=== PATIENT | female | born 2000 | race African-American/Black ===

== ENCOUNTER 2022-05-25 22:59 | Emergency (ER) | payer MEDICAID, OTHER ==
[~2022-05-25] VITALS: Ht 165.1 cm; Wt 88.5 kg
[2022-05-25 23:20] VITALS: BP 149/68
== END 2022-05-26 03:28 | disposition left against medical advice (07) ==
LOC: ER 22:59
DX: R03.0 Elevated blood-pressure reading, without diagnosis of hypertension (principal); R51.9 Headache, unspecified; R11.0 Nausea; Z53.21 Procedure and treatment not carried out due to patient leaving prior to being seen by health care provider

== ENCOUNTER 2022-06-01 19:08 | Emergency (ER) | payer MEDICAID ==
[~2022-06-01] VITALS: Ht 165.1 cm; Wt 87.7 kg
[2022-06-02] MEDS ORDERED: PROMETHAZINE HCL 25 MG/ML 1ML IM ONE
[2022-06-02] MEDS ORDERED: diphenhdrAMINE HCL 50 MG/1 ML VL IM ONE
[2022-06-02] MEDS ORDERED: KETOROLAC TROMETH 30 MG/ML 1ML VIAL IM ONE
[2022-06-02 01:22] VITALS: BP 117/72
== END 2022-06-02 01:24 | disposition home or self-care (01) ==
LOC: ER 19:08
DX: G43.909 Migraine, unspecified, not intractable, without status migrainosus (principal)
CPT/HCPCS: 70450; 96372; 99285; J1200; J1885; J2550